=== PATIENT | male | born 1950 ===

== ENCOUNTER 2024-12-30 06:24 | Day surgery (SDC) | payer MEDICARE, OTHER, SELFPAY | END 2024-12-30 11:55 | disposition home or self-care (01) | LOC: GI 06:24 | PROVIDERS: ATTENDING PHYSICIAN Internal Medicine Gastroenterology | DX: Z12.11 Encounter for screening for malignant neoplasm of colon (principal); D12.2 Benign neoplasm of ascending colon; K64.8 Other hemorrhoids; Z86.0100 Personal history of colon polyps, unspecified | CPT/HCPCS: 45380; 88305 ==